=== PATIENT | male | born 1960 | race Caucasian/White ===

== ENCOUNTER 2023-05-07 12:34 | Outpatient (OUT) | payer MEDICARE, SELFPAY ==
--- NOTE | 2023-05-07 13:40 | US_ITS ---
[place] [id number] Patient Name: DAXA BREWER MRN: [id number] date: 1960 Sex: M Assigned Patient Location: CARD Current Patient Location: CARD Accession/Order Number: [id number] Exam Date: 05/07/2023 13:41 Report Date: 05/07/2023 15:20 At the request of: FANNIE EDGE Procedure: US carotid duplex BI EXAMINATION: US carotid duplex BI HISTORY: R09.89 other specified symptoms and signs ciculatory system COMPARISON: No relevant comparison available. TECHNIQUE: Duplex Doppler ultrasound analysis of carotid and vertebral arteries. . Bilateral carotid arterial duplex examination was performed using B-mode, color flow and spectral analysis. Carotid stenosis is reported according to validated velocity parameters, similar to NASCET criteria. FINDINGS: RIGHT CAROTID ARTERY Mild atherosclerotic plaque without visible stenosis Subclavian: PSV: 167.4 cm/s cm/s EDV: 0.0 cm/s cm/s CCA: Prox: PSV: 71.0 cm/s cm/s EDV: 16.7 cm/s cm/s Mid: PSV: 76.2 cm/s cm/s EDV: 14.1 cm/s cm/s Distal: PSV: 112.4 cm/s cm/s EDV: 28.3 cm/s cm/s BULB: PSV: 96.9 cm/s cm/s EDV: 20.6 cm/s cm/s ICA: Prox: PSV: 145.1 cm/s cm/s EDV: 40.6 cm/s cm/s Mid: PSV: 117.5 cm/s cm/s EDV: 38.6 cm/s cm/s Distal: PSV: 78.1 cm/s cm/s EDV: 22.9 cm/s cm/s ECA: PSV: 156.9 cm/s cm/s EDV: 18.9 cm/s cm/s VERTEBRAL: PSV: 80.0 cm/s cm/s EDV: 17.0 cm/s cm/s, antegrade ICA/CCA ratio: PSV: 1.3 EDV: 1.4 LEFT CAROTID ARTERY not atherosclerotic plaque without visible stenosis Subclavian: PSV: 122.0 cm/s cm/s EDV: 8.1 cm/s CCA: Prox: PSV: 75.7 cm/s cm/s EDV: 16.4 cm/s Mid: PSV: 80.1 cm/s cm/s EDV: 16.4 cm/s Distal: PSV: 75.7 cm/s cm/s EDV: 17.5 cm/s BULB: PSV: 71.3 cm/s cm/s EDV: 17.5 cm/s ICA: Prox: PSV: 91.9 cm/s cm/s EDV: 20.8 cm/s Mid: PSV: 161.3 cm/s cm/s EDV: 58.2 cm/s Distal: PSV: 74.9 cm/s cm/s EDV: 19.2 cm/s ECA: PSV: 110.8 cm/s cm/s EDV: 11.1 cm/s VERTEBRAL: PSV: 56.4 cm/s cm/s EDV: 16.3 cm/s , antegrade ICA/CCA ratio: PSV: 2.1 EDV: 3.3 US/US carotid duplex BI IMPRESSION: 0-49% flow stenosis bilateral internal carotid arteries Spectral Doppler US Thresholds (Reference: Mauricio EG, et al. Radiology 2000; 214:247-252) Stenosis (%) PSV (cm/sec) VICA/VCCA 0-49 <150 <2.5 50-69 150-225 2.5-4.0 >70 >225 >4.0 Electronically authenticated by: YVROSE UPTON Date: 05/07/2023 15:20
--- NOTE | 2023-05-07 13:45 | CA_ITS ---
Patient Name: DAXA BREWER MR#: [id number] : 1960 Exam Date: 05/07/2023 Ordering Doctor: DR FANNIE EDGE M.D. ECHOCARDIOGRAM REPORT PROCEDURE: CA ECHO DOPPLER COMPLETE INDICATIONS: Nonrheumatic aortic (valve) stenosis COMPARISON: None. DESCRIPTION: COMPLETE ECHOCARDIOGRAM Real-time transthoracic echocardiography with 2D, M-mode, spectral and color flow Doppler performed. QUALITY: Technical quality was good. LEFT VENTRICLE: Normal chamber size. Moderate concentric left ventricular hypertrophy. LV EF: Global left ventricular systolic function is normal. Calculated left ventricular ejection fraction is 56%. No wall motion abnormalities. DIASTOLIC: Normal diastolic function. ATRIAL SEPTUM: Inadequately seen. LEFT ATRIUM: Normal chamber size. RIGHT ATRIUM: Normal chamber size. RIGHT VENTRICLE: Normal chamber size. Normal right ventricular systolic function. TRICUSPID VALVE: Normal mobility and thickness. No stenosis with mild regurgitation. No evidence of pulmonary hypertension. RVSP 20mmHg MITRAL VALVE: Normal mobility and thickness. No evidence of mitral valve stenosis. Mild mitral annular calcification. Trivial mitral regurgitation. AORTIC VALVE: Normal trileaflet appearance. Mildly calcified aortic valve. Mildly diminished mobility. Doppler velocity suggests mild aortic valve stenosis. DVI 0.47, LISA 1.7cm2, Vmax 2.06m/s, Mean gradient 9mmHg.No aortic regurgitation. AORTIC ROOT: Normal diameter and appearance. PULMONIC VALVE: Normal thickness and mobility. No stenosis. Trivial regurgitation. PERICARDIUM: No evidence of pericardial effusion. IVC: Collapses with inspirations. Normal size. CONCLUSION: 1. Global left ventricular systolic function is normal; visually estimated ejection fraction is 60 to 65%. 2. Normal right ventricular size and systolic function 3. Moderately increased left ventricular wall thickness 4. Normal diastolic function 5. Left atrium is normal in size 6. Mild tricuspid regurgitation 7. Mild aortic valve stenosis Adult Echocardiography Procedure Report Left Ventricle LVEDD (3.7 - 5.6 cm): 4.27 cm LVESD (2.2 - 4.0 cm): 2.74 cm LVIVS thickness (0.6 - 1.2 cm): 1.52 cm LVPW thickness (0.5 - 1.0 cm): 1.31 cm e': 0.09 m/s E - e': 9.59 LVOT Max Gradient: 3.75 mm[Hg] LVOT Area (cm2): 0.97 m/s Peak Velocity (LVOT): 0.97 m/s Mean Velocity (LVOT): 0.67 m/s LVOT Diameter 2.11 cm Left Ventricular Ejection Fraction: 55.62 % Left Atrium LA Volume Index (2D A2C): 33.31 ml/m2 Left Atrium Systolic Dimension: 3.93 cm Mitral Valve MV E to A Ratio: 1.28, 1.26 Mitral Valve A-Wave Peak Velocity: 0.70 m/s Mitral Valve E-Wave Peak Velocity: 0.89 m/s Right Ventricle RV Internal Diastolic Dimension: 2.94 cm Aorta AO Root Diam: 3.28 cm Ascending Ao Diam: 2.46 cm Aortic Valve AoV Area (Peak Malcolm): 1.68 cm2, 1.72 cm2 AoV Area (VTI): 1.70 cm2, 1.69 cm2 Peak Velocity(Antegrade Flow): 1.97 m/s, 2.06 m/s, 2.02 m/s Peak Gradient(Antegrade Flow): 15.45 mm[Hg], 16.93 mm[Hg], 16.29 mm[Hg] Mean Velocity(Antegrade Flow): 1.35 m/s, 1.38 m/s, 1.37 m/s Mean Gradient(Antegrade Flow): 8.34 mm[Hg], 8.97 mm[Hg], 8.72 mm[Hg] Velocity Time Integral: 41.72 cm, 42.24 cm, 40.74 cm Tricuspid Valve Peak Velocity (Regurgitant Flow): 2.07 m/s Pulmonic Valve Mean Gradient: 2.89 mm[Hg] Mean Velocity: 0.79 m/s Peak Velocity: 1.15 m/s, 0.95 m/s Peak Gradient: 5.31 mm[Hg], 3.62 mm[Hg] Right Atrium Right Atrium Systolic Pressure: 32.29 ml, 32.29 ml Dictated by: Shani Kaye M.D. on 05/09/2023 at 08:52 Approved by: Shani Kaye M.D. on 05/09/2023 at 08:59
== END 2023-05-07 12:35 | disposition home or self-care (01) ==
LOC: CARD 12:36
PROVIDERS: Visit Provider Internal Medicine Interventional Cardiology
DX: R09.89 Other specified symptoms and signs involving the circulatory and respiratory systems (principal); I35.0 Nonrheumatic aortic (valve) stenosis
CPT/HCPCS: 93306; 93880